=== PATIENT | female | born 1945 | race Caucasian/White ===

== ENCOUNTER → 2019-03-03 | Outpatient (REF) | payer MEDICARE, OTHER ==
[2019-03-03 18:35] LABS: AMYLASE 42 U/L (25-115); LIPASE 129 U/L (73-393)
== END ==
LOC: M LAB REF 17:00
PROVIDERS: ATTEND Internal Medicine
DX: M54.5 Low back pain (principal)

== ENCOUNTER 2019-11-26 11:19 | Inpatient (IN) | payer MEDICARE, OTHER ==
[~2019-11-26] VITALS: Ht 162.6 cm; Wt 85.7 kg
[2019-11-26] MEDS ORDERED: ASPI81TA85 PO (11:50)
[2019-11-26] MEDS ORDERED: OSPH1TAB PO (11:50)
[2019-11-26] MEDS ORDERED: ATEN100T PO (11:50)
[2019-11-26] MEDS ORDERED: TRIA1OI TOP (11:50)
[2019-11-26] MEDS ORDERED: CLOBETASOL (11:50)
[2019-11-26] MEDS ORDERED: ESTR62CR TOP (11:50)
[2019-11-26] MEDS ORDERED: SIMV20TA22 PO (11:50)
--- NOTE | 2019-11-26 11:58 | REP ---
CT brain: 11/26/2019. Indication: Stroke. Comparison: None. Technique: Unenhanced axial CT images of the brain were obtained from skull base to vertex with coronal reconstructions provided. Findings: There is no acute intracranial hemorrhage, acute cortical infarction, mass effect or hydrocephalous. The visualized paranasal sinuses and mastoid air cells are clear. Impression: No acute intracranial process. Electronically Signed by Tai Ford DO 11/26/2019 11:49 A
[2019-11-26 12:17] VITALS: BP 207/103
[2019-11-26 12:30] LABS: BASO # 0.1 10^3/uL (0.0-0.2); BASO % 0.8 % (0.0-1.0); EOS # 0.2 10^3/uL (0.0-0.5); EOS % 2.1 % (0.0-3.0); HEMOGLOBIN 12.7 g/dl (12.0-15.5); LYMPH # 2.4 10^3/uL (1.5-5.0); MEAN CORPUSCULAR HEMOGLOBIN 28.5 pg (27.0-33.0); MEAN CORPUSCULAR HGB CONC 30.2 g/dl (32.0-36.5); MEAN CORPUSCULAR VOLUME 94.4 fl (80.0-96.0); MONO # 0.6 10^3/uL (0.0-0.8); MONO % 8.1 % (0.0-5.0); NEUTROPHILS % 55.7 % (36.0-66.0); PLATELET COUNT, AUTOMATED 324 10^3/uL (150-450); RED BLOOD COUNT 4.45 10^6/uL (4.00-5.40); WHITE BLOOD COUNT 7.2 10^3/uL (4.0-10.0)
--- NOTE | 2019-11-26 12:42 | REP ---
Clinical: Acute cerebrovascular accident . Comparison: None . Findings: The mediastinum and cardiac silhouette are stable and within normal limits for portable technique. The lung styles without acute consolidation, effusion, or pneumothorax. Skeletal structures are intact. Impression: No acute cardiopulmonary process appreciated. Electronically Signed by Jer Dale MD 11/26/2019 12:34 P
[2019-11-26] MEDS ORDERED: LABETALOL HCL 100 MG/20 ML VIAL IV STA ×2 (12:50→15:46)
[2019-11-26] MEDS ORDERED: ASPIRIN 81 MG CHEW TABLET PO ONE (13:00)
[2019-11-26] MEDS ORDERED: TEMO0.0520 TOP (13:17)
[2019-11-26] MEDS ORDERED: CALC600T6 PO (13:17)
[2019-11-26] MEDS ORDERED: FISH1000 PO (13:17)
[2019-11-26 13:20] LABS: INR 0.99; PROTHROMBIN TIME 12.8 SECONDS (11.8-14.0)
[2019-11-26 13:21] LABS: PARTIAL THROMBOPLASTIN TIME 25.6 SECONDS (25.0-38.4)
[2019-11-26 13:31] LABS: ALBUMIN 3.6 GM/DL (3.2-5.2); ALT/SGPT 14 U/L (12-78); BILIRUBIN,DIRECT < 0.1 MG/DL (0.0-0.2); BILIRUBIN,TOTAL 0.5 MG/DL (0.2-1.0); BLOOD UREA NITROGEN 13 MG/DL (7-18); CALCIUM LEVEL 8.9 MG/DL (8.8-10.2); CARBON DIOXIDE LEVEL 27 MEQ/L (21-32); CHLORIDE LEVEL 108 MEQ/L (98-107); CPK CREATINE PHOSPHOKINASE 105 U/L (26-192); CREATININE FOR GFR 0.86 MG/DL (0.55-1.30); FREE T4 1.04 NG/DL (0.76-1.46); GLOMERULAR FILTRATION RATE > 60.0 (>39); GLUCOSE, FASTING 86 MG/DL (70-100); MB/CK RELATIVE INDEX 0.95 (< OR =4); POTASSIUM SERUM 5.4 MEQ/L (3.5-5.1); SODIUM LEVEL 142 MEQ/L (136-145); TOTAL PROTEIN 7.7 GM/DL (6.4-8.2); TROPONIN I < 0.02 NG/ML (< 0.10)
--- NOTE | 2019-11-26 14:24 | REP ---
MRI brain: 11/26/2019. Indication: Stroke. Comparison: No previous MRI studies are available for direct comparison. Technique: Multiplanar short and long TR sequences of the brain were performed without IV Gadolinium. Findings: There are no areas of restricted diffusion. There is no intracranial mass effect, hydrocephalus or significant hemorrhage. There are scattered areas of elevated T2 prolongation throughout the cerebral hemisphere white matter. Mild volume loss is present. The midline structures, and craniocervical junction are unremarkable. Impression: No acute intracranial process. Sequelae of chronic microangiopathic ischemic disease. Electronically Signed by Tai Ford DO 11/26/2019 02:15 P
--- NOTE | 2019-11-26 14:30 | REP ---
Intracranial MRA: 11/26/2019. Indication: Stroke. Comparison: None. Technique: 3-D [id number] imaging of the intracranial circulation were performed with rotational in imaging provided. Findings: There is no intracranial high-grade stenosis, vessel occlusion, aneurysm or AVM. The left vertebral artery is dominant. Impression: No intracranial high-grade stenosis or vessel occlusion. Electronically Signed by Tai Ford DO 11/26/2019 02:21 P
--- NOTE | 2019-11-26 15:38 | ECGEPIP ---
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
--- NOTE | 2019-11-26 16:27 | HPEPDOC ---
General Date of Admission Date of Service: Nov 26, 2019 Chief Complaint The patient is a 74-year-old female admitted with a reason for visit of S/S Stroke. Source: Patient Exam Limitations: No limitations Timing/Duration: This morning Severity: Moderate Associated Symptoms: Denies Symptoms History of Present Illness Pt is a 74 year old female who presented to [facility] ED with L sided facial drooping. Pt stated that she went to bed last night after taking her Atenolol 100mg as Rx. She woke up, was having her coffee when suddenly she noted numbness over the L side of her lips. She also noted that she was drooling from the L side of her mouth. Pt denied similar Sx in the past. She is getting over the worst of a cold. She has been around family over the holidays who had respiratory Sx. She does not take the flu vaccine. Pt and her stated he did not notice until I asked that her L eye was tearing and not blinking as frequently and the R. Mrs. Hernandez reported she is compliant with her home medications and she has not missed any doses. She does not check her BP at home and is not aware of it being high at home. Home Medications Scheduled Amlodipine Besylate (Amlodipine Besylate) 10 Mg Tablet, 10 MG PO DAILY Aspirin (Aspir 81) 81 Mg Tablet.dr, 81 MG PO QHS, (Reported) Atenolol (Atenolol) 100 Mg Tablet, 100 MG PO QHS, (Reported) Calcium Carbonate/Vitamin D3 (Calcium 600-Vit D3 400 Tablet) 1 Each Tablet, 1 TAB PO DAILY, (Reported) Hydralazine HCl (Hydralazine HCl) 25 Mg Tablet, 25 MG PO TID Only take if Blood pressure SBp> 170 [place]-3 Fatty Acids/Fish Oil (Fish Oil 1,000 mg Capsule) 1 Each Capsule, 1,000 MG PO DAILY, (Reported) Ospemifene (Osphena) 60 Mg Tablet, 60 MG PO QHS, (Reported) Prednisone (Prednisone) 20 Mg Tablet, 60 MG PO DAILY Simvastatin (Simvastatin) 20 Mg Tablet, 20 MG PO QHS, (Reported) Valacyclovir HCl (Valacyclovir) 500 Mg Tablet, 1,000 MG PO TID Scheduled PRN Clobetasol Propionate (Temovate) 30 Gm Cream..g., 1 DOSE TOP DAILY PRN for VAGINAL DRYNESS, (Reported) Conjugated Estrogens (Premarin) 30 Gm Cream.appl, 1 DOSE TOP DAILY PRN for VAGINAL DRYNESS, (Reported) Triamcinolone Acet (Triamcinolone Acetonide 0.1% Oint) 15 Gm Oint...g., 1 DOSE TOP DAILY PRN for RASH/ITCHING, (Reported) APPLY TO HANDS Allergies Coded Allergies: Penicillins (Verified Allergy, Unknown, 11/26/19) Past Medical History Medical History HTN HLD GERD Hiatal hernia BCC of the nose Postmenopausal Surgical History Azael Fundoplication with EGD 2000 Right wrist surgery Family History Significant Family History: Heart disease (Father dec. due to ID ), Hypertension (Sister ) Social History * Smoker: Denies Alcohol: rarely Drugs: denies Recent Travel/Sick Contacts: Reports: Recent sick contacts (family ); Denies: Recent travel Psychosocial History: No pertinent psych hx A-FIB/CHADSVASC A-FIB History Current/History of A-Fib/PAF?: No Current PO Anticoag Therapy: No Review of Systems Constitutional: Denies: Chills, Fever, Night Sweats Eyes: Denies: Pain, Vision change, Conjunctivae inflammation ENT: Denies: Head Aches, Ear Pain, Dysphagia Skin: Denies: Rash Pulmonary: Denies: Dyspnea, Cough Cardiovascular: Denies: Chest Pain, Palpitations, Orthopnea, Paroxysmal Noc. Dyspnea, Lt Headedness Gastrointestinal: Denies: Nausea, Vomiting, Abdominal Pain, Diarrhea Genitourinary: Denies: Dysuria, Retention Hematologic: Denies: Bruising Musculoskeletal: Denies: Neck Pain, Back Pain, Joint Pain, Muscle Pain, Spasms Neurological: Reports: Weakness (L side mouth/face ), Numbness (L side mouth/face ); Denies: Incoordination, Change in speech, Confusion Psych: Reports: Mood Normal; Denies: Depression, Memory Issues Physical Examination General Exam: Positive: Alert, Cooperative, No Acute Distress Eye Exam: Positive: EOMI, Ptosis; Negative: Conjunctiva & lids normal (L lid droop), Sclera icteric ENT Exam: Positive: Atraumatic, Mucous membr. moist/pink, Pharynx Normal, Tongue Midline; Negative: Pharyngeal Edema Neck Exam: Positive: Supple; Negative: thyromegaly Chest Exam: Positive: Clear to auscultation, Normal air movement Heart Exam: Positive: Rate Normal, Normal S1, Normal S2; Negative: Murmurs, Rubs Telemetry: Negative: No significant arrhythmia Abdomen Exam: Positive: Normal bowel sounds, Soft; Negative: Tenderness Extremity Exam: Positive: Normal pulses; Negative: Clubbing, Cyanosis, Edema, Tenderness, Swelling Skin Exam: Positive: Nl turgor and temperature Neuro Exam: Positive: Normal Gait, Normal Speech, Strength at 5/5 X4 ext, Sensa tion Intact; Negative: Cranial Nerves 3-12 NL (L sided facial palsy ) Psych Exam: Positive: Mood NL, Memory Intact, Oriented x 3 Vital Signs Vital Signs Date Time Temp Pulse Resp B/P (MAP) Pulse Ox O2 Delivery O2 Flow Rate FiO2 11/26/19 14:20 75 195/114 11/26/19 12:17 20 96 Room Air 11/26/19 11:19 98.7 Laboratory Data Labs 24H Laboratory Tests 2 11/26/19 12:13: Immature Granulocyte % (Auto) 0.3, Neutrophils (%) (Auto) 55.7, Lymphocytes (%) (Auto) 33.0, Monocytes (%) (Auto) 8.1H, Eosinophils (%) (Auto) 2.1, Basophils (%) (Auto) 0.8, Neutrophils # (Auto) 4.0, Lymphocytes # (Auto) 2.4, Monocytes # (Auto) 0.6, Eosinophils # (Auto) 0.2, Basophils # (Auto) 0.1, Nucleated Red Blood Cells % (auto) 0.0, Anion Gap 7L, Glomerular Filtration Rate > 60.0, C alcium Level 8.9, Total Bilirubin 0.5, Direct Bilirubin < 0.1, Aspartate Amino Transf (AST/SGOT) 31, Alanine Aminotransferase (ALT/SGPT) 14, Alkaline Phosphatase 71, Total Creatine Kinase 105, Creatine Kinase MB 1.0, Creatine Kinase MB Relative Index 0.95, Troponin I < 0.02, Total Protein 7.7, Albumin 3.6, Albumin/Globulin Ratio 0.88L, Thyroid Stimulating Hormone (TSH) 2.140, Free Thyroxine 1.04 11/26/19 12:55: Prothrombin Time 12.8, Prothromb Time International Ratio 0.99, Activated Partial Thromboplast Time 25.6 CBC/BMP Laboratory Tests 11/26/19 12:13 Assessment/Plan Pt is a 74 year old female who presented to [facility] ED with L sided facial drooping. Pt stated that she went to bed last night after taking her Atenolol 100mg as Rx. She woke up, was having her coffee when suddenly she noted numbness over the L side of her lips. She also noted that she was drooling from the L side of her mouth. Pt denied similar Sx in the past. She is getting over the worst of a cold. She has been around family over the holidays who had respiratory Sx. She does not take the flu vaccine. Pt and her stated he did not notice until I asked that her L eye was tearing and not blinking as frequently and the R. Mrs. Hernandez reported she is compliant with her home medications and she has not missed any doses. She does not check her BP at home and is not aware of it being high at home. Brain MRA Impression: "No intracranial high-grade stenosis or vessel occlusion." Brain MRI w/out contrast Impression: "No acute intracranial process. Sequelae of chronic microangiopathic ischemic disease." CT Head w/out contrast Impression: "No acute intracranial process." CXR Impression: "No acute cardiopulmonary process appreciated." EKG - unremarkable 1. 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 Soto - start Prednisone, Valacyclovir for 1 week per recommendation - Lyme disease screen - pending 3. HLD - continue home medication 4. GERD - give PPI inpatient 5. Hyperkalemia - specimen slightly hemolyzed - re-check BMP Plan / VTE VTE Prophylaxis Ordered?: Yes (Heparin ) Attending Note I have personally performed a face to face diagnostic evaluation on this patient. I have reviewed and agree with the care plan documented above. TACHO CRAVEN PA-C Nov 26, 2019 16:27 KALLI DENISE MD Nov 29, 2019 18:33
[2019-11-26] MEDS ORDERED: amLODIPine 10 MG TAB PO ONE (17:00)
[2019-11-26] MEDS ORDERED: FUROSEMIDE 40 MG/4 ML VIAL (J1940) IV ONE (17:00)
[2019-11-26 17:50] VITALS: BP 134/77
[2019-11-26 18:55] LABS: CALCIUM LEVEL 9.1 MG/DL (8.8-10.2); CREATININE FOR GFR 0.98 MG/DL (0.55-1.30); GLOMERULAR FILTRATION RATE 59.4 (>39); POTASSIUM SERUM 3.8 MEQ/L (3.5-5.1)
[2019-11-26 20:00] VITALS: BP 133/78
[2019-11-26] MEDS: **hydrALAZINE HCL** 25 MG TAB PO SCH (20:18)
[2019-11-26] MEDS: valACYclovir HCL 500 MG TAB PO SCH (20:18)
[2019-11-26] MEDS: HEPARIN SOD (PORCINE) 5000 UNITS/ML VIAL SC SCH (20:19)
[2019-11-26] MEDS ORDERED: predniSONE 20 MG TAB PO ONE (21:00)
[2019-11-26] MEDS ORDERED: SIMVASTATIN 20 MG TAB PO SCH (21:00)
[2019-11-26] MEDS ORDERED: atenoloL 50 MG TAB PO SCH (21:00)
[2019-11-27] VITALS: BP 122/70
[2019-11-27 04:00] VITALS: BP 133/76
[2019-11-27 05:59] LABS: HEMATOCRIT 39.7 % (36.0-47.0); HEMOGLOBIN 12.8 g/dl (12.0-15.5); MEAN CORPUSCULAR HEMOGLOBIN 29.6 pg (27.0-33.0); MEAN CORPUSCULAR HGB CONC 32.2 g/dl (32.0-36.5); MEAN CORPUSCULAR VOLUME 91.7 fl (80.0-96.0); PLATELET COUNT, AUTOMATED 346 10^3/uL (150-450); RED BLOOD COUNT 4.33 10^6/uL (4.00-5.40); WHITE BLOOD COUNT 5.9 10^3/uL (4.0-10.0)
[2019-11-27] MEDS: **hydrALAZINE HCL** 25 MG TAB PO SCH ×2 (06:00)
[2019-11-27 06:29] LABS: CALCIUM LEVEL 9.1 MG/DL (8.8-10.2)
[2019-11-27 08:00] VITALS: BP 160/100
[2019-11-27 08:19] VITALS: BP 160/100
[2019-11-27] MEDS: HEPARIN SOD (PORCINE) 5000 UNITS/ML VIAL SC SCH (08:19)
[2019-11-27] MEDS: valACYclovir HCL 500 MG TAB PO SCH (08:19)
[2019-11-27] MEDS ORDERED: amLODIPine 10 MG TAB PO SCH (09:00)
[2019-11-27] MEDS ORDERED: predniSONE 20 MG TAB PO SCH (09:00)
[2019-11-27] MEDS ORDERED: HYDR25TA PO (10:08)
[2019-11-27] MEDS ORDERED: PRED20TA PO (10:08)
[2019-11-27] MEDS ORDERED: VALA500T5 PO (10:08)
[2019-11-27] MEDS ORDERED: AMLO10TA5 PO (10:08)
--- NOTE | 2019-11-27 12:46 | DS.PDOC ---
Discharge Summary General Date of Admission Nov 26, 2019 at 15:03 Date of Discharge 11/27/18 Discharge Summary PROCEDURES PERFORMED DURING STAY: [None]. DISCHARGE DIAGNOSES: Left sided Henry's Palsy Hypertensive urgency SECONDARY DIAGNOSIS: HTN HLD GERD Hiatal hernia BCC of the nose Chronic Cough Postmenopausal Azael Fundoplication with EGD 1999 Right wrist surgery COMPLICATIONS/CHIEF COMPLAINT: Henry Palsy,Facial Droop,Hypertensive Urgency. HISTORY OF PRESENT ILLNESS: See history and physical HOSPITAL COURSE: Pt is a 74 year old female who presented to [facility] ED with L sided facial drooping. Pt stated that she went to bed last night after taking her Atenolol 100mg as Rx. She woke up, was having her coffee when suddenly she noted numbness over the L side of her lips. She also noted that she was drooling from the L side of her mouth. Pt denied similar Sx in the past. She is getting over the worst of a cold. She has been around family over the holidays who had respiratory Sx. She does not take the flu vaccine. Pt and her stated he did not notice until I asked that her L eye was tearing and not blinking as frequently and the R. Mrs. Hernandez reported she is compliant with her home medications and she has not missed any doses. She does not check her BP at home and is not aware of it being high at home. Hypertensive Urgency resolved started on amlodipine 10, continued atenolol hydralazine 25 tid as needed for BP> 170 North's Palsy neuro consulted per telephone; Dr. Soto start Prednisone, Valacyclovir for 1 week per recommendation Lyme disease screen - pending follow up PMD HLD continue home medication GERD home meds DISCHARGE MEDICATIONS: Please see below. ALLERGIES: Please see below. PHYSICAL EXAMINATION ON DISCHARGE: VITAL SIGNS: Please see below. General Exam: Positive: Alert, Cooperative, No Acute Distress Eye Exam: Positive: EOMI, Ptosis; Negative: Conjunctiva & lids normal (L lid droop), Sclera icteric ENT Exam: Positive: Atraumatic, Mucous membr. moist/pink, Pharynx Normal, Tongue Midline; Negative: Pharyngeal Edema Neck Exam: Positive: Supple; Negative: thyromegaly Chest Exam: Positive: Clear to auscultation, Normal air movement Heart Exam: Positive: Rate Normal, Normal S1, Normal S2; Negative: Murmurs, Rubs Telemetry: Negative: No significant arrhythmia Abdomen Exam: Positive: Normal bowel sounds, Soft; Negative: Tenderness Extremity Exam: Positive: Normal pulses; Negative: Clubbing, Cyanosis, Edema, Tenderness, Swelling Skin Exam: Positive: Nl turgor and temperature Neuro Exam: Positive: Normal Gait, Normal Speech, Strength at 5/5 X4 ext, Sensation Intact; Left sided facial nerve palsy. Psych Exam: Positive: Mood NL, Memory Intact, Oriented x 3 LABORATORY DATA: Please see below. IMAGING: Brain MRA Impression: "No intracranial high-grade stenosis or vessel occlusion." Brain MRI w/out contrast Impression: "No acute intracranial process. Sequelae of chronic microangiopathic ischemic disease." CT Head w/out contrast Impression: "No acute intracranial process." CXR Impression: "No acute cardiopulmonary process appreciated." ACTIVITY: [As tolerated]. DIET: 2 gram sodium DISPOSITION: 01 Home, Self-Care. DISCHARGE INSTRUCTIONS: follow up with PMD in 1 week Check bp pressure 2 to 3 times a day and maintain log. DISCHARGE CONDITION: [Stable]. TIME SPENT ON DISCHARGE: 35 minutes. Vital Signs/I&Os Vital Signs Date Time Temp Pulse Resp B/P (MAP) Pulse Ox O2 Delivery O2 Flow Rate FiO2 11/27/19 08:19 160/100 11/27/19 08:00 98.2 103 20 94 Room Air I&O- Last 24 Hours up to 6 AM 11/27/19 06:00 Intake Total 570 ml Output Total 1000 ml Balance -430 ml Laboratory Data Labs 24H Laboratory Tests 2 11/26/19 12:55: Prothrombin Time 12.8, Prothromb Time International Ratio 0.99, Activated Partial Thromboplast Time 25.6 11/26/19 18:14: Anion Gap 9, Glomerular Filtration Rate 59.4, Calcium Level 9.1 11/27/19 05:37: Anion Gap 8, Glomerular Filtration Rate 58.0, Calcium Level 9.1, Nucleated Red Blood Cells % (auto) 0.0 CBC/BMP Laboratory Tests 11/26/19 18:14 11/27/19 05:37 Discharge Medications Scheduled Amlodipine Besylate (Amlodipine Besylate) 10 Mg Tablet, 10 MG PO DAILY Aspirin (Aspir 81) 81 Mg Tablet.dr, 81 MG PO QHS, (Reported) Atenolol (Atenolol) 100 Mg Tablet, 100 MG PO QHS, (Reported) Calcium Carbonate/Vitamin D3 (Calcium 600-Vit D3 400 Tablet) 1 Each Tablet, 1 TAB PO DAILY, (Reported) Hydralazine HCl (Hydralazine HCl) 25 Mg Tablet, 25 MG PO TID Only take if Blood pressure SBp> 170 [place]-3 Fatty Acids/Fish Oil (Fish Oil 1,000 mg Capsule) 1 Each Capsule, 1,000 MG PO DAILY, (Reported) Ospemifene (Osphena) 60 Mg Tablet, 60 MG PO QHS, (Reported) Prednisone (Prednisone) 20 Mg Tablet, 60 MG PO DAILY Simvastatin (Simvastatin) 20 Mg Tablet, 20 MG PO QHS, (Reported) Valacyclovir HCl (Valacyclovir) 500 Mg Tablet, 1,000 MG PO TID Scheduled PRN Clobetasol Propionate (Temovate) 30 Gm Cream..g., 1 DOSE TOP DAILY PRN for VAG INAL DRYNESS, (Reported) Conjugated Estrogens (Premarin) 30 Gm Cream.appl, 1 DOSE TOP DAILY PRN for VAGINAL DRYNESS, (Reported) Triamcinolone Acet (Triamcinolone Acetonide 0.1% Oint) 15 Gm Oint...g., 1 DOSE TOP DAILY PRN for RASH/ITCHING, (Reported) APPLY TO HANDS Allergies Coded Allergies: Penicillins (Verified Allergy, Unknown, 11/26/19) KALLI DENISE MD Nov 27, 2019 12:46
[2019-11-29 14:12] LABS: Lyme Disease IgG/IgM Antibodie <0.91 ISR (0.00-0.90); Lyme Disease IgM Ab Quantitati <0.80 index (0.00-0.79)
== END 2019-11-27 11:25 | disposition home or self-care (01) | DRG 74 ==
LOC: M ED 11:19 → M ED INP 15:03 → ENRESERV 15:33 → M PCU 17:48
PROVIDERS: ADMIT Internal Medicine Nephrology; ATTEND Internal Medicine Nephrology
DX: G51.0 Bell's palsy (principal); K21.9 Gastro-esophageal reflux disease without esophagitis; I16.0 Hypertensive urgency; K44.9 Diaphragmatic hernia without obstruction or gangrene; Z85.828 Personal history of other malignant neoplasm of skin; R05 Cough; I10 Essential (primary) hypertension; Z79.82 Long term (current) use of aspirin; Z79.899 Other long term (current) drug therapy; Z88.0 Allergy status to penicillin; E87.5 Hyperkalemia

== ENCOUNTER → 2020-05-18 | Outpatient (REF) | payer MEDICARE, OTHER ==
[~2020-05-18] MED LIST: AMLO10TA5 PO; ASPI81TA85 PO; ATEN100T PO; CALC600T6 PO; CLOBETASOL; ESTR62CR TOP; FISH1000 PO; HYDR25TA PO; OSPH1TAB PO; PRED20TA PO; SIMV20TA22 PO; TEMO0.0520 TOP; TRIA1OI TOP; VALA500T5 PO
== END ==
LOC: M LAB REF 16:09
PROVIDERS: ATTEND Internal Medicine
DX: I10 Essential (primary) hypertension (principal); E78.01 Familial hypercholesterolemia

== ENCOUNTER → 2020-08-02 | Outpatient (REF) | payer MEDICARE, OTHER ==
[~2020-08-02] MED LIST changes: -AMLO10TA5 PO; +AMLO1TAB25 PO; -ASPI81TA85 PO; +ASPI81TA86 PO; +CALC600T17 PO; -CALC600T6 PO
[2020-08-03 12:25] LABS: PERCENT SATURATION 19.9 % (13.2-45.0)
== END ==
LOC: M LAB REF 18:13
PROVIDERS: ATTEND Internal Medicine
DX: G62.9 Polyneuropathy, unspecified (principal); D64.9 Anemia, unspecified

== ENCOUNTER → 2020-10-21 | Outpatient (CLI) | payer MEDICARE, OTHER | LOC: M LABSMTC 11:14 | PROVIDERS: ATTEND Orthopaedic Surgery | DX: Z01.812 Encounter for preprocedural laboratory examination (principal); Z20.828 Contact with and (suspected) exposure to other viral communicable diseases ==

== ENCOUNTER → 2021-04-06 | Outpatient (CLI) | payer MEDICARE, OTHER | LOC: M LABSMTC 11:07 | PROVIDERS: ATTEND Plastic Surgery Surgery of the Hand | DX: Z20.822 Contact with and (suspected) exposure to COVID-19 (principal); M25.531 Pain in right wrist ==

== ENCOUNTER → 2021-07-31 | Outpatient (REF) | payer MEDICARE, OTHER ==
[2021-08-01 11:55] LABS: PERCENT SATURATION 18.8 % (13.2-45.0)
== END ==
LOC: M LAB REF 11:15
PROVIDERS: ATTEND Internal Medicine
DX: D64.9 Anemia, unspecified (principal)

== ENCOUNTER → 2021-10-05 | Outpatient (CLI) | payer MEDICARE, OTHER ==
--- NOTE | 2021-10-05 16:41 | REPVR ---
PROCEDURE INFORMATION: Exam: MR Lumbar Spine Without Contrast Exam date and time: 10/05/2021 3:36 PM Age: 76 years old Clinical indication: Low back pain; Additional info: Lbp TECHNIQUE: Imaging protocol: Multiplanar magnetic resonance images of the lumbar spine without intravenous contrast. COMPARISON: No relevant prior studies available. FINDINGS: Vertebrae: No anterior wedging deformity. No acute fracture visualized. There is a large heterogeneous signal mass at the right lateral aspect of the L3 vertebra, measuring 6.5 x 8.2 x 7.6 cm. This lesion is involving the right L3 pedicle and inferior articular facet, as well as the right posterolateral aspect of the vertebral body centrum. This lesion is contributing to severe right neural foraminal stenosis. The lesion exhibits heterogeneous signal, with central T2 signal hyperintensity and a central fluid level. The lesion is splaying and displacing the right psoas muscle, which is draped over the outer margin of the lesion. This lesion, which is well marginated, is nonspecific but is likely arising from bone. In a patient of this age, a blowout metastatic disease such as renal neoplasm must be considered. Although the lesion exhibits features of aneurysm lobe bone cyst, these are usually seen in much younger patients. Spinal cord: The distal spinal cord and conus medullaris are normal in signal and morphology. T11-12: Visualized in the sagittal plane only, there is a diffuse disc bulge which causes moderate central canal stenosis, without cord compression. Mild bilateral neural foraminal stenosis. L1-L2: Moderate central stenosis due to a diffuse right eccentric disc bulge with superimposed central disc extrusion migrating several mm below the disc level. Mild right neural foraminal stenosis. L2-L3: Moderate to severe central canal stenosis due to a diffuse disc bulge with left paracentral disc extrusion migrating a few mm below the disc level. There is bilateral lateral recess stenosis, with mild left neural foraminal stenosis. L3-L4: Diffuse spondylitic disc bulge and facet hypertrophy cause severe central canal stenosis. There is mild left and severe right neural foraminal stenosis at this level. L4-L5: Moderate to severe central canal stenosis due to a diffuse disc bulge in combination with facet hypertrophy. Bilateral lateral recess stenosis. Right foraminal disc extrusion contributes to moderate to severe right neural foraminal stenosis. Moderate neural foraminal stenosis on the left. L5-S1: Moderate central stenosis due to diffuse left eccentric spondylitic disc bulge, with left eccentric lateral recess stenosis. Moderate to severe left and moderate right neural foraminal stenosis. Soft tissues: Expansile right paraspinal lesion at the L3 level. See above. Kidneys and ureters: The kidneys are partially visualized. There is irregular lateral contour of the right kidney, and follow-up renal CT is recommended to better characterize. IMPRESSION: 1. Expansile right paraspinal lesion at the L3 level, as above, likely originating from the right pedicle. Although nonspecific, in a patient of this age, a blow up metastatic disease such as renal neoplasm must be considered. 2. Irregular contour of the right kidney is partially visualized. Follow-up renal CT is recommended to better characterize. 3. Diffuse lumbar spondylosis and facet arthropathy, resulting in multilevel central canal and neural foraminal stenosis, as above. Electronically signed by: Irais Ybarra On 10/05/2021 16:41:22 PM
== END ==
LOC: M PLARAD 14:52
PROVIDERS: ATTEND Internal Medicine
DX: M51.26 Other intervertebral disc displacement, lumbar region (principal); M48.061 Spinal stenosis, lumbar region without neurogenic claudication; M47.816 Spondylosis without myelopathy or radiculopathy, lumbar region

== ENCOUNTER → 2021-10-22 | Outpatient (CLI) | payer MEDICARE, OTHER ==
[~2021-10-22] MED LIST changes: +ACET25TA12 PO; +DULO1CAP5 PO; +DULO30CA9 PO; +GABA-283 PO; +GASTROGRAFIN SOLUTION 30ML (Q9963) ONE; +HYDR-3490 PO; +ISOVUE-370 76% 100ML VIAL ONE; +PANT40TA29 PO; +TELM1TAB35 PO
== END ==
LOC: M PLAIMG 12:35
PROVIDERS: ATTEND Internal Medicine
DX: R93.89 Abnormal findings on diagnostic imaging of other specified body structures (principal)
CPT/HCPCS: 71270; 74178; Q9963; Q9967

== ENCOUNTER → 2021-11-06 | Outpatient (REF) | payer MEDICARE, OTHER ==
[~2021-11-06] MED LIST changes: -GASTROGRAFIN SOLUTION 30ML (Q9963) ONE; -ISOVUE-370 76% 100ML VIAL ONE
== END ==
LOC: M LAB REF 16:51
PROVIDERS: ATTEND Internal Medicine
DX: Z01.818 Encounter for other preprocedural examination (principal); Z12.31 Encounter for screening mammogram for malignant neoplasm of breast; Z53.9 Procedure and treatment not carried out, unspecified reason

== ENCOUNTER → 2021-11-07 | Outpatient (REF) | payer MEDICARE, OTHER ==
[2021-11-07 18:05] LABS: INR 0.96; PARTIAL THROMBOPLASTIN TIME 32.7 SECONDS (25.9-37.0); PROTHROMBIN TIME 13.2 SECONDS (12.7-14.5)
== END ==
LOC: M LAB REF 16:45
PROVIDERS: ATTEND Internal Medicine
DX: Z01.812 Encounter for preprocedural laboratory examination (principal); D48.5 Neoplasm of uncertain behavior of skin

== ENCOUNTER → 2021-11-08 | Outpatient (CLI) | payer MEDICARE, OTHER ==
[~2021-11-08] MED LIST changes: +LIDOCAINE 1% MDV 20ML VIAL As Ordered ONE
[2021-11-08 09:27] VITALS: BP 134/63
--- NOTE | 2021-11-08 17:57 | REP ---
INDICATION: NEOPLASM OF UNCERTAIN BEHAVIOR OF SKIN. COMPARISON: None. TECHNIQUE: The procedure was procedure performed under the direct supervision of Dr. Kwok. Patient has a history of an 8.8 x 6.3 x 6.8 sized mixed enhancing solid mass in the right psoas muscle seen on a previous CT scan dated 10/22/2021. The risks and benefits of the procedure were explained to the patient and informed consent was obtained. The right psoas mass was localized using CT guidance. The skin was prepped and draped in a sterile fashion. Ten mL of 1% lidocaine was used as local anesthetic. Using CT guidance 19/20 gauge coaxial biopsy system was inserted. Five core biopsy samples were obtained. 10 mL of low viscosity red colored fluid was also withdrawn. All samples were sent to the lab for analysis.. Estimated blood loss: Less than 1 mL The patient tolerated the procedure well and there were no immediate complications. After the appropriate amount to monitored convalescence the patient was discharged from the department. FINDINGS: None IMPRESSION: CT-guided right psoas mass biopsy. <Electronically signed by Mickey White > 11/08/21 [id number] <Electronically signed by Adam Kwok > 11/08/21 [id number]
== END ==
LOC: M IRPRO 08:13
PROVIDERS: ATTEND Internal Medicine
DX: D36.10 Benign neoplasm of peripheral nerves and autonomic nervous system, unspecified (principal); D20.1 Benign neoplasm of soft tissue of peritoneum

== ENCOUNTER → 2021-12-17 | Outpatient (CLI) | payer MEDICARE, OTHER ==
[~2021-12-17] MED LIST changes: -LIDOCAINE 1% MDV 20ML VIAL As Ordered ONE; +PROHANCE 279.3MG/ML 15ML VIAL As Ordered ONE
== END ==
LOC: M RAD 07:32
PROVIDERS: ATTEND Internal Medicine
DX: M54.41 Lumbago with sciatica, right side (principal); M51.26 Other intervertebral disc displacement, lumbar region; M51.36 Other intervertebral disc degeneration, lumbar region
CPT/HCPCS: 72158; A9576

== ENCOUNTER → 2021-12-19 | Outpatient (CLI) | payer MEDICARE, OTHER ==
[~2021-12-19] MED LIST changes: -PROHANCE 279.3MG/ML 15ML VIAL As Ordered ONE; +PROHANCE 279.3MG/ML 5ML VIAL ONE
== END ==
LOC: M PLAIMG 10:01
PROVIDERS: ATTEND Internal Medicine
DX: M50.30 Other cervical disc degeneration, unspecified cervical region (principal); D48.7 Neoplasm of uncertain behavior of other specified sites; M48.02 Spinal stenosis, cervical region; M43.12 Spondylolisthesis, cervical region; M25.78 Osteophyte, vertebrae
CPT/HCPCS: 72156; 72157; A9576

== ENCOUNTER → 2022-02-22 | Outpatient (CLI) | payer MEDICARE, OTHER ==
[~2022-02-22] MED LIST changes: +ACET-861 PO; +BETA1TAB PO; -PROHANCE 279.3MG/ML 5ML VIAL ONE
== END ==
LOC: M LABSMTC 10:46
PROVIDERS: ATTEND Anesthesiology
DX: Z20.828 Contact with and (suspected) exposure to other viral communicable diseases (principal); Z11.59 Encounter for screening for other viral diseases

== ENCOUNTER 2022-02-27 13:33 | Day surgery (SDC) | payer MEDICARE, OTHER ==
[~2022-02-27] VITALS: Ht 162.6 cm; Wt 90.7 kg
[~2022-02-27 13:33] MED LIST changes: +NS 1,000 ML IV ONE
[2022-02-27] MEDS ORDERED: propofoL 200 MG/20 ML VIAL As Ordered ONE ×2 (15:09→15:11)
[2022-02-27] MEDS ORDERED: LIDOCAINE 2% 100MG/5ML SDV (FOR ANES.) As Ordered ONE ×2 (15:09→15:11)
[2022-02-27 16:30] VITALS: BP 134/75
== END 2022-02-27 16:42 | disposition home or self-care (01) ==
LOC: M OPP 13:33
PROVIDERS: ATTEND Internal Medicine Gastroenterology
DX: K57.30 Diverticulosis of large intestine without perforation or abscess without bleeding (principal); K64.0 First degree hemorrhoids; R93.3 Abnormal findings on diagnostic imaging of other parts of digestive tract; Z79.899 Other long term (current) drug therapy; Z88.0 Allergy status to penicillin

== ENCOUNTER → 2022-04-25 | Outpatient (REF) | payer MEDICARE, OTHER ==
[~2022-04-25] MED LIST changes: -NS 1,000 ML IV ONE
[2022-04-25 12:55] LABS: APPEARANCE, URINE CLEAR (CLEAR); BACTERIA, URINE AUTO NEGATIVE (NEGATIVE); BILIRUBIN, URINE AUTO NEGATIVE (NEGATIVE); BLOOD, URINE BLOOD NEGATIVE (NEGATIVE); COLOR, URINE YELLOW (YELLOW); GLUCOSE, URINE (UA) AUTO NEGATIVE (NEGATIVE); KETONE, URINE AUTO NEGATIVE (NEGATIVE); LEUKOCYTE ESTERASE, URINE AUTO 2+ (NEGATIVE); NITRITE, URINE AUTO NEGATIVE (NEGATIVE); PROTEIN, URINE AUTO NEGATIVE (NEGATIVE); RBC, URINE AUTO 0 /HPF (0-3); SPECIFIC GRAVITY URINE AUTO 1.018 (1.002-1.035); SQUAMOUS EPITHELIAL CELL UR AU 3 /HPF (0-6); UROBILINOGEN, URINE AUTO 0.2 mg/dL (0.0-2.0); WBC, URINE AUTO 9 /HPF (0-3)
[2022-04-25 13:07] LABS: INR 0.92; PROTHROMBIN TIME 12.8 SECONDS (12.7-14.5)
[2022-04-25 13:08] LABS: PARTIAL THROMBOPLASTIN TIME 29.2 SECONDS (25.9-37.0)
== END ==
LOC: M LAB REF 12:07
PROVIDERS: ATTEND Internal Medicine
DX: Z01.818 Encounter for other preprocedural examination (principal)

== ENCOUNTER → 2022-05-13 | Outpatient (CLI) | payer MEDICARE, OTHER | LOC: M LABSMTC 10:46 | PROVIDERS: ATTEND Physician Assistant Medical | DX: Z01.812 Encounter for preprocedural laboratory examination (principal); Z20.822 Contact with and (suspected) exposure to COVID-19; D36.10 Benign neoplasm of peripheral nerves and autonomic nervous system, unspecified; M54.2 Cervicalgia ==

== ENCOUNTER → 2023-03-20 | Outpatient (REF) | payer MEDICARE, OTHER ==
[2023-03-21 13:22] LABS: PERCENT SATURATION 15.3 % (13.2-45.0)
[2023-03-21 13:25] LABS: FERRITIN 13.5 NG/ML (7.3-270.7)
== END ==
LOC: M LAB REF 12:01
PROVIDERS: ATTEND Internal Medicine
DX: R71.8 Other abnormality of red blood cells (principal)

== ENCOUNTER → 2023-05-20 | Outpatient (CLI) | payer MEDICARE, OTHER ==
[~2023-05-20] MED LIST changes: +PROHANCE 279.3MG/ML 5ML VIAL ONE
== END ==
LOC: M PLAIMG 12:32
PROVIDERS: ATTEND Physician Assistant Medical
DX: D36.10 Benign neoplasm of peripheral nerves and autonomic nervous system, unspecified (principal); Z92.3 Personal history of irradiation
CPT/HCPCS: 71552; 72158; A9576

== ENCOUNTER → 2023-07-01 | Outpatient (REF) | payer MEDICARE, OTHER ==
[~2023-07-01] MED LIST changes: -GABA-283 PO; +GABA-284 PO; -PROHANCE 279.3MG/ML 5ML VIAL ONE
[2023-07-01 17:22] LABS: APPEARANCE, URINE CLEAR (CLEAR); BACTERIA, URINE AUTO NEGATIVE (NEGATIVE); BILIRUBIN, URINE AUTO NEGATIVE (NEGATIVE); BLOOD, URINE BLOOD NEGATIVE (NEGATIVE); COLOR, URINE YELLOW (YELLOW); GLUCOSE, URINE (UA) AUTO NEGATIVE (NEGATIVE); KETONE, URINE AUTO NEGATIVE (NEGATIVE); LEUKOCYTE ESTERASE, URINE AUTO NEGATIVE (NEGATIVE); MUCUS, URINE SMALL (NEGATIVE); NITRITE, URINE AUTO NEGATIVE (NEGATIVE); PROTEIN, URINE AUTO NEGATIVE (NEGATIVE); RBC, URINE AUTO 0 /HPF (0-3); SPECIFIC GRAVITY URINE AUTO 1.019 (1.002-1.035); SQUAMOUS EPITHELIAL CELL UR AU 1 /HPF (0-6); UROBILINOGEN, URINE AUTO 0.2 mg/dL (0.0-2.0); WBC, URINE AUTO 1 /HPF (0-3)
[2023-07-01 17:56] LABS: INR 0.96
== END ==
LOC: M LAB REF 16:51
PROVIDERS: ATTEND Internal Medicine
DX: Z01.818 Encounter for other preprocedural examination (principal)

== ENCOUNTER → 2023-11-14 | Outpatient (REF) | payer MEDICARE, OTHER ==
[2023-11-14 18:27] LABS: PERCENT SATURATION 7.8 % (13.2-45.0)
== END ==
LOC: M LAB REF 16:46
PROVIDERS: ATTEND Internal Medicine
DX: D50.9 Iron deficiency anemia, unspecified (principal)

== ENCOUNTER → 2024-03-29 | Outpatient (CLI) | payer MEDICARE, OTHER ==
[~2024-03-29] MED LIST changes: -HYDR25TA PO; +HYDR25TA88 PO; +PROHANCE 279.3MG/ML 15ML VIAL As Ordered ONE; +PROHANCE 279.3MG/ML 5ML VIAL As Ordered ONE
== END ==
LOC: M RAD 14:31
PROVIDERS: ATTEND Radiology Radiation Oncology
DX: D36.10 Benign neoplasm of peripheral nerves and autonomic nervous system, unspecified (principal)
CPT/HCPCS: 71552; 72158; A9576

== ENCOUNTER → 2024-05-19 | Outpatient (CLI) | payer MEDICARE, OTHER ==
[~2024-05-19] MED LIST changes: -PROHANCE 279.3MG/ML 15ML VIAL As Ordered ONE; -PROHANCE 279.3MG/ML 5ML VIAL As Ordered ONE
== END ==
LOC: M PAIN 08:30
PROVIDERS: ATTEND Anesthesiology
DX: M54.12 Radiculopathy, cervical region (principal); M96.1 Postlaminectomy syndrome, not elsewhere classified; Z79.899 Other long term (current) drug therapy; Z88.0 Allergy status to penicillin

== ENCOUNTER → 2024-06-16 | Outpatient (CLI) | payer MEDICARE, OTHER | LOC: M PAIN 17:00 | PROVIDERS: ATTEND Anesthesiology | DX: M51.17 Intervertebral disc disorders with radiculopathy, lumbosacral region (principal); M96.1 Postlaminectomy syndrome, not elsewhere classified; Z79.899 Other long term (current) drug therapy; Z88.0 Allergy status to penicillin ==

== ENCOUNTER → 2024-07-29 | Outpatient (REF) | payer MEDICARE, OTHER | LOC: M LAB REF 13:26 | PROVIDERS: ATTEND Internal Medicine | DX: D50.9 Iron deficiency anemia, unspecified (principal) ==

== ENCOUNTER → 2024-09-02 | Outpatient (CLI) | payer MEDICARE, OTHER | LOC: M PAIN 16:30 | PROVIDERS: ATTEND Anesthesiology | DX: M96.1 Postlaminectomy syndrome, not elsewhere classified (principal); E78.00 Pure hypercholesterolemia, unspecified; I10 Essential (primary) hypertension; G89.29 Other chronic pain; M54.50 Low back pain, unspecified; Z79.899 Other long term (current) drug therapy; Z88.0 Allergy status to penicillin ==

== ENCOUNTER → 2024-10-28 | Outpatient (CLI) | payer MEDICARE, OTHER ==
[~2024-10-28] MED LIST changes: +ISOVUE-M 300 61% 15ML VIAL As Ordered ONE; +LIDOCAINE 1% SDV 30ML VIAL As Ordered ONE; +NORCO, ANEXSIA 5/325MG TABLET (HYDROcodone/ACETAMINOPHEN) As Ordered ONE; +dexAMETHasone 10MG/1ML VIAL PRES.FREE As Ordered ONE; +diazePAM 5MG TABLET As Ordered ONE
== END ==
LOC: M PAIN 12:45
PROVIDERS: ATTEND Anesthesiology
DX: M96.1 Postlaminectomy syndrome, not elsewhere classified (principal); G89.29 Other chronic pain; M54.50 Low back pain, unspecified; E78.00 Pure hypercholesterolemia, unspecified; I10 Essential (primary) hypertension; Z79.899 Other long term (current) drug therapy; Z88.0 Allergy status to penicillin
CPT/HCPCS: 62323; J1100; Q9967

== ENCOUNTER → 2024-11-05 | Outpatient (REF) | payer MEDICARE, OTHER ==
[~2024-11-05] MED LIST changes: -ISOVUE-M 300 61% 15ML VIAL As Ordered ONE; -LIDOCAINE 1% SDV 30ML VIAL As Ordered ONE; -NORCO, ANEXSIA 5/325MG TABLET (HYDROcodone/ACETAMINOPHEN) As Ordered ONE; -dexAMETHasone 10MG/1ML VIAL PRES.FREE As Ordered ONE; -diazePAM 5MG TABLET As Ordered ONE
== END ==
LOC: M LAB REF 12:12
PROVIDERS: ATTEND Internal Medicine
DX: D50.9 Iron deficiency anemia, unspecified (principal)

== ENCOUNTER → 2024-11-26 | Outpatient (CLI) | payer MEDICARE, OTHER | LOC: M PAIN 15:30 | PROVIDERS: ATTEND Nurse Practitioner Family | DX: M51.16 Intervertebral disc disorders with radiculopathy, lumbar region (principal); M25.552 Pain in left hip; M46.1 Sacroiliitis, not elsewhere classified; G89.29 Other chronic pain; E78.00 Pure hypercholesterolemia, unspecified; I10 Essential (primary) hypertension; Z79.891 Long term (current) use of opiate analgesic; Z79.899 Other long term (current) drug therapy; Z88.0 Allergy status to penicillin ==

== ENCOUNTER → 2025-03-31 | Outpatient (REF) | payer MEDICARE, OTHER | LOC: M LAB REF 13:29 | PROVIDERS: ATTEND Internal Medicine | DX: N18.31 Chronic kidney disease, stage 3a (principal); D50.9 Iron deficiency anemia, unspecified ==

== ENCOUNTER → 2025-08-17 | Outpatient (REF) | payer MEDICARE, OTHER | LOC: M LAB REF 13:07 | PROVIDERS: ATTEND Internal Medicine | DX: D50.9 Iron deficiency anemia, unspecified (principal) ==